=== PATIENT | female | born 1995 | race Caucasian/White ===

== ENCOUNTER 2016-06-28 10:18 | Inpatient (IN) | payer OTHER ==
--- NOTE | ~2016-06-28 | DS ---
Unit #: [id number] #: [id number] Patient: [facility]NAL [facility]NOTT [id number] [facility] [address] [place] [address] [id number] MR#: [id number] NAME: KUNAL KNOTT ROOM: P258 Age: 21 Sex: F Admission Date: 06/28/2016 : 1995 Discharge Date: 07/06/2016 Attending Physician: Preston Perez M.D. Primary Care Physician: Primary Care Physician No DISCHARGE SUMMARY IDENTIFYING DATA Ms. Knott is a 21-year-old white female, who is a resident of [place], [place], and is known to us from previous encounter, and was self-referred to the hospital. DISCHARGE DIAGNOSES Psychiatric: Schizoaffective disorder, bipolar type, most recent episode depressed, recurrent, moderate, with psychosis. Medical: None. Stressors: Moderate psychosocial stressors. HISTORY OF PRESENT ILLNESS Please see initial psychiatric evaluation for details. PAST PSYCHIATRIC HISTORY Please see initial psychiatric evaluation for details. PAST MEDICAL HISTORY Please see initial psychiatric evaluation for details. HOSPITAL COURSE The patient [facility] and was oriented to the hospital environment. Routine p.r.n. medications were initiated, and she was started back on her home medications and medications were adjusted and she was considered to be a candidate for long-acting injectable antipsychotic and Aristada was initiated at 662 mg intramuscular every 30 days and she was able to receive her first injection while on the unit; followed by which, it was decided that she will be discharged home and will be maintained on oral Abilify by another 2 weeks. DISCHARGE MEDICATIONS Abilify 10 mg at bedtime for next 2 weeks and Aristada 662 mg intramuscular every 30 days. DISCHARGE CONDITION Stable. PROGNOSIS Fair. Dictated by... Preston Perez M.D. Unit #: [id number] #: [id number] Patient: KUNAL KNOTT IAA/modl TD: 07/07/2016 03:00 JOB #: [id number] DISCHARGE SUMMARY X Preston Perez MD DISCHARGE SUMMARY
--- NOTE | ~2016-06-28 | TN ---
Unit #: [id number] #: [id number] Patient: KUNAL KNOTT [id number] [facility] [place] [address] [id number] I MR#: [id number] NAME: KUNAL KNOTT ROOM: P258 Age: 21 Sex: F Admission Date: 06/28/2016 : 1995 Discharge Date: 07/06/2016 Attending Physician: Preston Perez M.D. Primary Care Physician: Primary Care Physician No LOC TRANSFER NOTE DATE OF SERVICE: 07/07/2016 HISTORY OF PRESENT ILLNESS Ms. Knott is a 21-year-old single white female with history of schizoaffective disorder, who was stepped down to the outpatient treatment program from the adult inpatient psychiatric unit, where she was hospitalized under my care from 06/28/2016 to 07/06/2016 and was brought to the hospital in acute manic and psychotic state and was started on Abilify and was started on long-acting injectable Aristada, which she did good on; however, apparently her insurance does not cover that medication even with prior authorization, stating that it is just a policy exclusion. The patient on the other hand has been doing much better and has been showing a therapeutic response to Abilify. SUBSTANCE ABUSE HISTORY The patient denies any alcohol or drug abuse. PAST PSYCHIATRIC HISTORY The patient has had history of multiple inpatient psychiatric hospitalizations with a long history of chronic mental illness on the line of schizoaffective disorder and is currently on Abilify 10 mg a day. PAST MEDICAL HISTORY No acute or chronic medical illnesses. ALLERGIES No known medication allergies. PERSONAL AND SOCIAL HISTORY A 21-year-old white female, who reports that she is single, unemployed, and lives at home with her mother and has fairly decent social support system. MENTAL STATUS EXAMINATION Young white female who was casually dressed with fair personal hygiene, appears to be in no acute distress or discomfort. She was awake and alert on interaction with intact orientation. Her mood was anxious with a congruent affect. Her speech was slow and goal directed. She denies any suicidal or homicidal ideations, and also denies any auditory or visual hallucinations. Her insight and judgment remain slightly impaired. DIAGNOSTIC IMPRESSION Psychiatric: Schizoaffective disorder, bipolar type, most recent episode Unit #: [id number] #: [id number] Patient: KUNAL KNOTT manic with psychosis. Medical: None. Stressors: Moderate psychosocial stressors. TREATMENT PLAN 1. The patient has presented with a history of mood disorder and psychosis. We will recommend enrolling her into the outpatient treatment program and maintaining her on her current medications. We will monitor her response and make further adjustments as needed. 2. Supportive therapy was provided to the patient. ESTIMATED LENGTH OF STAY 14 to 21 days. ABILITY TO HELP SELF Limited. WILLINGNESS TO HELP SELF The patient appears to be willing to help self. STRENGTHS 1. Communicative. 2. Cooperative. PROBLEMS 1. Chronic dysphoric symptoms. 2. Poor social support system. DISCHARGE CRITERIA This will be contingent upon the patient's ability to show resolution of her depression with bijan and psychosis and her ability to stay safe to herself, particularly after discharge from the program. Dictated by... Preston Perez M.D. KATIE/yashira TD: 07/08/2016 03:51 JOB #: [id number] LOC TRANSFER NOTE X Preston Perez MD X LOC TRANSFER NOTE
--- NOTE | ~2016-06-28 | PN ---
Unit #: [id number] #: [id number] Patient: KUNAL KNOTT [id number] [facility] [address] [place] [address] [id number] MR#: [id number] NAME: KUNAL KNOTT ROOM: P258 Age: 21 Sex: F Admission Date: 06/28/2016 : 1995 Attending Physician: Preston Perez M.D. Admitting Physician: Preston Perez M.D. Primary Care Physician: Primary Care Physician Alena AMBRIZ NOTES DATE OF SERVICE: 06/29/2016 SUBJECTIVE Ms. Knott is a 21-year-old white female with mood disorder, who was seen today and chart was reviewed, and case was discussed with the staff. She has been anxious, withdrawn, depressed, and seclusive to herself with disorganized thoughts, speech and behavior, though she has not shown any agitation or aggression, she has been showing some persistent psychosis. Meanwhile, she has been taking the medications and tolerating them fairly well. MENTAL STATUS EXAMINATION Young white female, who was casually dressed with fair personal hygiene, appears to be in no acute distress or discomfort. She was awake and alert on interaction with intact orientation. Her mood was anxious and depressed with a congruent affect. She denies any suicidal or homicidal ideations. Her insight and judgment remain slightly impaired. TREATMENT PLAN We will continue her on her current medications and treatment protocol. We will monitor her response and make further adjustments as needed. Dictated by... Jan Owen/yashira TD: 07/01/2016 07:24 JOB #: [id number] ALETHA PROGRESS NOTES X Preston Perez MD PROGRESS NOTE
--- NOTE | ~2016-06-28 | PN ---
Unit #: [id number] #: [id number] Patient: KUNAL KNOTT [id number] [facility] [address] [place] [address] [id number] I MR#: [id number] NAME: KUNAL KNOTT. ROOM: P258 Age: 21 Sex: F Admission Date: 06/28/2016 : 1995 Attending Physician: Preston Perez M.D. Admitting Physician: Preston Perez M.D. Primary Care Physician: Primary Care Physician Alena AMBRIZ NOTES DATE OF SERVICE: 07/02/2016 SUBJECTIVE Ms. Knott is a 21-year-old white female, who was seen today and chart was reviewed and the case was discussed with the staff. She has been anxious, withdrawn, and rather seclusive to herself. Meanwhile, she has been compliant with the treatment recommendations, but has been exhibiting bijan-like symptoms with acute psychosis, paranoia, and delusional behavior. She has not been able to carry a meaningful conversation and apparently did get her first dose of Aristada long-acting monthly antipsychotic yesterday and did not show any tolerability issues. MENTAL STATUS EXAMINATION Young white female, who was casually dressed with fair personal hygiene, appears to be in no acute distress or discomfort. She was awake and alert with intact orientation. Her mood was anxious with a congruent affect. She denies any suicidal or homicidal ideations. Her thought processes were disorganized with some looseness of associations and flight of ideas with paranoid ideations and delusional behavior. Her insight and judgment remain slightly impaired. TREATMENT PLAN 1. We will continue her on her current medications and treatment protocol. We will monitor her response to the medications and make further adjustments as needed. 2. We will continue to follow up. Dictated by... Jan Owen/nileshl TD: 07/02/2016 14:46 JOB #: [id number] Unit #: [id number] #: [id number] Patient: KUNAL KNOTT ALETHA AMBRIZ NOTES X Preston Perez MD X PROGRESS NOTE
--- NOTE | ~2016-06-28 | PN ---
Unit #: [id number] #: [id number] Patient: KUNAL KNOTT [id number] [facility] [address] [place] [address] [id number] I MR#: [id number] NAME: KUNAL KNOTT ROOM: P258 Age: 21 Sex: F Admission Date: 06/28/2016 : 1995 Attending Physician: Preston Perez M.D. Admitting Physician: Preston Perez M.D. Primary Care Physician: Primary Care Physician Alena AMBRIZ NOTES DATE OF SERVICE 06/30/2016 DISCUSSION Ms. Knott is a 21-year-old white female who was seen today. Chart was reviewed and case was discussed with the staff. She has been anxious, withdrawn, and rather seclusive to himself. Meanwhile, she has been cooperative with the treatment recommendations and has been taking the medications and tolerating them fairly well. MENTAL STATUS EXAMINATION Young white female who is casually dressed with fair personal hygiene, appears to be in slight distress and discomfort. She was awake and alert with impaired attention and concentration. Her mood is anxious with congruent affect. She denies any suicidal or homicidal ideations. Her insight and judgment remain slightly impaired. We will continue her on her current medications and treatment protocol. TREATMENT PLAN 1. We will monitor her response to the medications and make further adjustments as needed. 2. We will continue to follow up. Dictated by... Preston Perez M.D. IAA/bzg TD: 07/01/2016 10:42 JOB #: [id number] LENNYCE PROGRESS NOTES X Preston Perez MD PROGRESS NOTE
--- NOTE | ~2016-06-28 | PN ---
Unit #: [id number] #: [id number] Patient: KUNAL KNOTT [id number] [facility] [address] [place] [address] [id number] I MR#: [id number] NAME: KUNAL KNOTT ROOM: P258 Age: 21 Sex: F Admission Date: 06/28/2016 : 1995 Attending Physician: Preston Perez M.D. Admitting Physician: Preston Perez M.D. Primary Care Physician: Primary Care Physician Alena AMBRIZ NOTES DATE OF SERVICE: 07/04/2016 SUBJECTIVE Ms. Knott is a 21-year-old white female, who was seen today and chart was reviewed, and case was discussed with the staff. She has been anxious, withdrawn, though has not shown any agitation or irritability, and has been cooperative with the treatment recommendations and has been taking the medications and tolerating them fairly well with no reported side effects. MENTAL STATUS EXAMINATION Young white female, who was casually dressed with fair personal hygiene, appears to be in no acute distress or discomfort. She was awake and alert on interaction with intact orientation. Her mood was anxious with a congruent affect. She denies any suicidal or homicidal ideations. Her insight and judgment remain slightly impaired. TREATMENT PLAN 1. We will continue her on her current medications and treatment protocol. We will monitor her response to the medications and make further adjustments as needed. 2. We will continue to follow up. Dictated by... Jan Owen/yashira TD: 07/05/2016 06:28 JOB #: [id number] ALETHA AMBRIZ NOTES X Preston Perez MD PROGRESS NOTE
--- NOTE | ~2016-06-28 | PN ---
Unit #: [id number] #: [id number] Patient: KUNAL KNOTT [id number] [facility] [address] [place] [address] [id number] MR#: [id number] NAME: KUNAL KNOTT. ROOM: P258 Age: 21 Sex: F Admission Date: 06/28/2016 : 1995 Attending Physician: Preston Perez M.D. Admitting Physician: Preston Perez M.D. Primary Care Physician: Primary Care Physician Alena AMBRIZ NOTES DATE July 05, 2016 DISCUSSION Ms. Knott is a 21-year-old white female, who was seen today and chart was reviewed and the case was discussed with the staff. She has been exhibiting somewhat bizarre behavior, (1) like symptoms and flight of ideas, and difficulty being interrupted; however, she has not shown any agitation or aggression. She has been taking the medications and tolerating them fairly well. MENTAL STATUS EXAMINATION Young white female, who was casually dressed with fair personal hygiene and appears to be in no acute distress or discomfort. She was awake and alert on interaction with intact orientation. Her mood was anxious with a congruent affect. Her speech is fluent and tangential. Her thought processes are disorganized with some looseness of associations and flight of ideas. Her insight and judgment remain significantly impaired. TREATMENT PLAN 1. We will continue her on her current medications and treatment protocol, and will monitor her response to the medications, and make further adjustments as needed. 2. We will continue to followup. Dictated by... Jan Owen/hugo TD: 07/06/2016 10:10 JOB #: [id number] Unit #: [id number] #: [id number] Patient: KUNAL KNOTT ALETHA PROGRESS NOTES X Preston Perez MD PROGRESS NOTE
--- NOTE | ~2016-06-28 | PN ---
Unit #: [id number] #: [id number] Patient: KUNAL KNOTT [id number] [facility] [address] [place] [address] [id number] I MR#: [id number] NAME: KUNAL KNOTT. ROOM: P258 Age: 21 Sex: F Admission Date: 06/28/2016 : 1995 Attending Physician: Preston Perez M.D. Admitting Physician: Preston Perez M.D. Primary Care Physician: Primary Care Physician Alena AMBRIZ NOTES DATE 07/01/2016 DISCUSSION Ms. Knott is a 21-year-old white female who was seen today and chart was reviewed and case was discussed with the staff. She has been anxious, withdrawn though has not shown any agitation, irritability and has been cooperative with treatment recommendations though has been exhibiting bizarre behavior with bijan-like symptoms and tangentiality and looseness of associations and has not been able to carry on meaningful conversation. MENTAL STATUS EXAMINATION Young white female who was casually dressed with fair personal hygiene and appears to be in no acute distress or discomfort. She was awake and alert with intact orientation. Her mood was anxious with congruent affect. Her speech is pressured and tangential. Her thought processes were disorganized with some looseness of associations and flight of ideas. Her insight and judgement remains significantly impaired. TREATMENT PLAN Will continue on current medications and treatment protocol. Will monitor her response to the medications and make further adjustments as needed. Dictated by... Jan Owen/vale TD: 07/02/2016 16:44 JOB #: [id number] Unit #: [id number] #: [id number] Patient: KUNAL KNOTT ALETHA PROGRESS NOTES X Preston Perez MD PROGRESS NOTE
--- NOTE | ~2016-06-28 | HP ---
Unit #: [id number] #: [id number] Patient: KUNAL YADAV [id number] [place] [address] [id number] I MR#: [id number] NAME: KUNAL YADAV. ROOM: P132 Age: 21 Sex: F Admission Date: 06/28/2016 : 1995 Attending Physician: Preston Perez M.D. Admitting Physician: Preston Perez M.D. Primary Care Physician: Primary Care Physician No HISTORY AND PHYSICAL HISTORY OF PRESENT ILLNESS Kunal is a 21 year old admitted to [address] [place] [address] with depression and verbalizing wanting to hurt herself. PAST MEDICAL HISTORY Obesity. PAST SURGICAL HISTORY Nothing reported. ALLERGIES Adhesive tape. Lactose. SOCIAL HISTORY She denies cigarettes, alcohol and illicit drug use. FAMILY HISTORY Medically noncontributory. REVIEW OF SYSTEMS CONSTITUTIONAL: No fever or chills. HEENT: Denies any sore throat, ear pain or runny nose. CARDIOVASCULAR: Denies chest pain, irregular heart rhythm or palpitations. CHEST: Denies shortness of breath or cough. No hemoptysis. GASTROINTESTINAL: Denies nausea, vomiting, diarrhea or chronic constipation. ENDOCRINE: Denies history of increased thirst or urination. No recent significant weight loss or gain. GENITOURINARY: Denies dysuria, frequency, or hematuria. SKIN: Denies any rashes. HEMATOLOGIC: Denies history of increased bleeding or bruising. MUSCULOSKELETAL: Denies any hot, swollen joints. No generalized muscle pain. NEUROLOGIC: Denies problems with vision or speech. No frequent, severe headaches. No numbness, tingling or weakness in any extremities. Denies loss of bladder or bowel control. CURRENT MEDICATIONS 1. Milk of Magnesia p.r.n. 2. Maalox p.r.n. 3. Tylenol p.r.n. Unit #: [id number] #: [id number] Patient: KUNAL YADAV PHYSICAL EXAMINATION GENERAL: Alert, well-nourished, in no apparent distress. VITAL SIGNS: Blood pressure 110/70, heart rate 74, respirations 16, temperature 98.6. WEIGHT: 142 pounds. HEIGHT: 5'2". SKIN: Warm and dry without rash or lesion. HEENT: Normocephalic. TMs not viewed. Oral and nasal passages clear. Conjunctivae clear. Pupils equal, round and reactive to light and accommodation. Extraocular movements intact. NECK: Supple without lymphadenopathy or thyromegaly. HEART: Regular rate and rhythm without murmur. LUNGS: Clear. ABDOMEN: Soft, nontender. : Not done. EXTREMITIES: No evidence of cyanosis, clubbing or edema. Moves all extremities without focal deficit. NEUROLOGICAL: Grossly within normal limits. Cranial Nerves: II: Visual miller are intact. III, IV AND : Extraocular movements are intact. Pupils are equal, round and reactive to light. V: Facial sensation is grossly normal. VII: Facial movements and expression are normal. VIII: Auditory acuity grossly intact. IX, X: Uvula is midline. Phonation is normal. XI: Patient shrugs shoulders and turns head normally. XII: Tongue protrudes in the midline. Sensory and Motor Function: Sensory and motor sensation is grossly normal. Motor: moves all extremities well. Coordination: Gait is normal. Deep Tendon Reflexes: Intact. IMPRESSION Psychiatric admission RECOMMENDATIONS PSYCHIATRIC: Per psychiatrist. MEDICAL: I see no contraindications to participating in facility's activities. MEDICAL PROGNOSIS Good. MEDICAL CONDITION Stable. Dictated by... Sara Frideman P.A.-C. for Jan Woo/roseline TD: 06/29/2016 00:57 JOB #: [id number] Unit #: [id number] #: [id number] Patient: KUNAL YADAV HISTORY AND PHYSICAL X Sara Friedman X HISTORY AND PHYSICAL
--- NOTE | ~2016-06-28 | PN ---
Unit #: [id number] #: [id number] Patient: KUNAL KNOTT [id number] [facility] [address] [place] [address] [id number] MR#: [id number] NAME: KUNAL KNOTT. ROOM: P258 Age: 21 Sex: F Admission Date: 06/28/2016 : 1995 Attending Physician: Preston Perez M.D. Admitting Physician: Preston Perez M.D. Primary Care Physician: Primary Care Physician Alena AMBRIZ NOTES DATE 07/03/2016 DISCUSSION Ms. Knott is a 21-year-old white female who was seen today and chart was reviewed and case was discussed with the staff. She has been anxious, withdrawn and rather seclusive to herself though has been exhibiting bizarre behavior, looseness of associations and flight of ideas. She has been taking the medications and tolerating them fairly well with no reported side effects. MENTAL STATUS EXAMINATION Young white female who was casually dressed with fair personal hygiene, appears to be in no acute distress or discomfort. She was awake and alert with impaired attention and concentration. Her mood was anxious with congruent affect. His speech was fluent and tangential. Her thought processes were disorganized with some looseness of associations and flight of ideas. Her insight and judgement remains significantly impaired. TREATMENT PLAN 1. We will continue her on her current medications and treatment protocol. We will monitor her response to the make further adjustments as needed. 2. We will continue to follow up. Dictated by... Jan Owen/roseline TD: 07/05/2016 03:49 JOB #: [id number] Unit #: [id number] #: [id number] Patient: KUNAL KNOTT ALETHA PROGRESS NOTES X Preston Perez MD PROGRESS NOTE
--- NOTE | ~2016-06-28 | PA ---
Unit #: [id number] #: [id number] Patient: KUNAL KNOTT [id number] [facility] [address] [place] [address] [id number] MR#: [id number] NAME: KUNAL KNOTT ROOM: P132 Age: 21 Sex: F Admission Date: 06/28/2016 : 1995 Date of Assessment: Attending Physician: Preston Perez M.D. Admitting Physician: Preston Perez M.D. PSYCHIATRIC ASSESSMENT DATE OF SERVICE 06/28/2016. IDENTIFYING DATA Ms. Knott is a 21-year-old single white female who is a resident of [place], [place] is known to us from previous encounter and was brought to the hospital on a self referral basis. CHIEF COMPLAINT "I'm having suicidal thoughts. I'm hearing voices." HISTORY OF PRESENT ILLNESS Ms. Knott is a 21-year-old white female with history of chronic mental illness, who was brought back to the hospital for another assessment due to suicidal ideation and auditory hallucination, and also reports that she has been hearing voices telling her to self quit. Her mother reports that she is not sleeping, has not had any food in the last 2 days and stated that she was questioning her value of life and has no motivation, and reports feeling anxious, depressed, and hopeless and helpless. She does report decompensation in her mood and functioning and has been seen to be danger to self and others and as such, recommendation for inpatient level of care for safety and stabilization was made. SUBSTANCE ABUSE HISTORY The patient denies any alcohol or drug abuse. PAST PSYCHIATRIC HISTORY The patient has had history of multiple inpatient psychiatric hospitalizations including being at [facility] and [facility] several times, and has been diagnosed and treated for schizoaffective bipolar type. Review of the medical records indicate that currently she is noncompliant with any and all treatment, is not seeing a psychiatrist, and is not taking any psychotropic medications. PAST MEDICAL HISTORY No acute or chronic medical illnesses. ALLERGIES No known medication allergies. PERSONAL AND SOCIAL HISTORY A 21-year-old white female who reports that she is single, unemployed, and lives with her mother and sister and has fairly decent social support Unit #: [id number] #: [id number] Patient: KUNAL KNOTT system. MENTAL STATUS EXAMINATION Young white female who was casually dressed with fair personal hygiene, appears to be in no acute distress or discomfort. She was awake and alert on interaction with intact orientation to time, place, and person. Her mood was anxious and depressed with a congruent affect. Her speech was slow and goal directed. She reports having suicidal ideations and command auditory hallucinations, and vague homicidal ideations. Her insight and judgment remain significantly impaired. DIAGNOSTIC IMPRESSION Psychiatric: Schizoaffective disorder, bipolar type, most recent episode depressed, recurrent, moderate, with psychosis. Medical: None. Stressors: Moderate psychosocial stressors. TREATMENT PLAN 1. The patient has presented with history of mood disorder and psychosis, and has been decompensating, and will need inpatient hospitalization for safety and stabilization. We will start her back on her home medications. We will adjust the medications and monitor response. 2. Supportive therapy was provided to the patient. ESTIMATED LENGTH OF STAY 5 to 7 days. ABILITY TO HELP SELF Limited. WILLINGNESS TO HELP SELF The patient appears to be willing to help self. STRENGTHS 1. Communicative. 2. Cooperative. PROBLEMS 1. Chronic dysphoric symptoms. 2. Poor social support system. DISCHARGE CRITERIA This will be contingent upon the patient's ability to show resolution of her depression and anxiety, and psychosis, and her ability to stay safe to herself and others, particularly after discharge from the hospital. Dictated by... Jan Owen/yashira TD: 06/29/2016 23:05 JOB #: [id number] Unit #: [id number] #: [id number] Patient: KUNAL KNOTT Gallo PSYCHIATRIC ASSESSMENT X Preston Perez MD PSYCHIATRIC ASSESSMENT
[2016-06-29 12:42] LABS: BASOPHIL% 0.2 % (0-2.5); EOSINOPHIL# 0.2 X10e3 (0-0.7); EOSINOPHIL% 2.1 % (0.0-7.0); HEMATOCRIT 43.1 % (35.0-45.0); HEMOGLOBIN 14.3 gm/dL (12.0-16.0); LYMPHOCYTE# 3.3 X10e3 (1.0-3.5); LYMPHOCYTE% 31.9 % (17.0-45.0); MEAN CELL VOLUME 87.2 FL (83-96); MEAN CORPUSCULAR HEMOGLOBIN 28.9 PG (28-34); MEAN CORPUSCULAR HGB CONC 33.2 g/dL (30-36); MEAN PLATELET VOLUME 7.7 FL (6.5-11.5); MONOCYTE# 0.8 X10e3 (0-1.0); MONOCYTE% 7.3 % (3.0-12.0); NEUTROPHIL# 6.1 X10e3 (1.5-7.1); NEUTROPHIL% 58.5 % (40-75); PLATELET COUNT 339 X10e3 (140-420); RED BLOOD COUNT 4.95 X10e (3.90-5.30); RED CELL DISTRIBUTION WIDTH 12.8 % (11.0-15.5); WHITE BLOOD COUNT 10.4 X10e3 (4.0-10.5)
[2016-06-29 12:58] LABS: ALBUMIN SERUM 4.4 g/dL (3.5-5.0); ALKALINE PHOSPHATASE 116 U/L (32-92); ALT (SGPT) 19 U/L (10-40); AST (SGOT) 21 U/L (10-42); BILIRUBIN,TOTAL 0.6 mg/dL (0.2-2.0); BLOOD UREA NITROGEN 9 mg/dL (9-23); CALCIUM SERUM 9.5 mg/dL (8.4-10.2); CARBON DIOXIDE 25 mmol/L (22-31); CHLORIDE 104 mmol/L (100-111); CREATININE SERUM 0.6 mg/dL (0.6-1.4); GLOM FILT RATE Estimated ABOVE60 mL/min (>60); GLUCOSE FASTING 91 mg/dL (70-110); POTASSIUM 4.2 mmol/L (3.5-5.1); PROTEIN TOTAL SERUM 7.1 g/dL (6.0-8.3); SODIUM 138 mmol/L (135-145); THYROID STIMULATING HORMONE 1.15 uIU/ml (0.34-5.60)
[2016-06-29 13:03] LABS: DIFF IND NO
[2016-06-29 13:05] LABS: FREE THYROXIN (T4) 0.7 ng/dL (0.58-1.64)
[2016-07-04 11:29] LABS: URINE APPEARANCE CLEAR; URINE BILIRUBIN NEG (NEG); URINE BLOOD NEG (NEG); URINE COLOR YELLOW; URINE GLUCOSE NEG (NEG); URINE KETONE 1+ (NEG); URINE LEUKOCYTE ESTERASE TRACE (NEG); URINE NITRATE NEG (NEG); URINE PH 5.5 (5-8); URINE PROTEIN NEG (NEG); URINE SPECIFIC GRAVITY 1.006 (1.003-1.035); URINE UROBILINOGEN 0.2 MG/DL (NEG)
[2016-07-04 11:35] LABS: URBCS1 AUWI 0-2 /[HPF] (0-2); URINE BACTERIA AUWI NEG (NEGATIVE); URINE SQUAMOUS EPITHELIAL CELL NONE SEEN /[HPF]
[2016-07-04 11:50] LABS: AMPHETAMINE NEG (NEG); BARBITURATES NEG (NEG); BENZODIAZEPINES NEG (NEG); COCAINE NEG (NEG); MARIJUANA NEG (NEG); OPIATES NEG (NEG); TRICYCLIC ANTIDEPRESSANTS NEG (NEG); U METHADONE NEG (NEG)
== END 2016-07-06 16:17 | disposition home or self-care (01) | DRG 885 ==
LOC: P1S 10:18 → P2L 06-30 17:05 → POF 07-02 15:24 → P2L 07-02 15:30
PROVIDERS: Psychiatry & Neurology Psychiatry
DX: F25.0 Schizoaffective disorder, bipolar type (principal); F31.32 Bipolar disorder, current episode depressed, moderate; F29 Unspecified psychosis not due to a substance or known physiological condition; F41.9 Anxiety disorder, unspecified; E66.9 Obesity, unspecified
CPT/HCPCS: 80053; 80307; 81003; 84439; 84443; 84703; 85025